=== PATIENT | female | born 1980 | race American Indian/Alaskan Native ===

== ENCOUNTER 2016-11-08 13:26 | Emergency (ER) | payer MEDICAID ==
[2016-11-08] MEDS ORDERED: MOTRIN PO ONE (16:59)
--- NOTE | 2016-11-08 17:01 | Emergency Department Report ---
ED Extremity Problem HPI - General Chief complaint: Animal Bite Stated complaint: INSECT BITE/RT ELBOW PAIN/ Time Seen by Provider: 11/08/16 16:39 Source: patient Mode of arrival: Ambulatory Limitations: No Limitations - History of Present Illness Initial comments: Patient states she noticed a small, red, itchy bump on her right elbow yesterday and thought it was a mosquito bite, but today as time progressed, her elbow has become increasingly swollen and painful and warm to the touch; denies any recent injuries or trauma and fevers MD Complaint: joint swelling, joint paint -: days(s) (1) Location: right, elbow History of Same: No -: No myalgia, Yes arthralgia, No fever, No associated dyspnea, No associated chest pain Radiation: distal Severity scale (0 -10): 8 Quality: stabbing, sharp Consistency: constant Improves with: immobilization Worsens with: palpation, other (movement) Associated Symptoms: arthralgias. denies: chest pain, shortness of breath, fever, myalgias, rash - Related Data Previous Rx's Medication Instructions Recorded Last Taken Type Clindamycin [Clindamycin CAP] 300 mg PO Q8H #30 cap 11/08/16 Unknown Rx Ibuprofen [Motrin] 600 mg PO Q8H PRN #20 tablet 11/08/16 Unknown Rx traMADol [Ultram 50 MG tab] 50 mg PO Q4HR PRN #14 tablet 11/08/16 Unknown Rx Allergies Allergy/AdvReac Type Severity Reaction Status Date / Time No Known Allergies Allergy Unverified 11/08/16 14:27 ED Review of Systems ROS: Stated complaint: INSECT BITE/RT ELBOW PAIN/ Other details as noted in HPI Constitutional: denies: chills, fever, weakness Respiratory: denies: cough, shortness of breath Cardiovascular: denies: chest pain Gastrointestinal: denies: nausea, vomiting Musculoskeletal: joint swelling, arthralgia Skin: denies: rash Neurological: denies: headache ED Past Medical Hx - Past Medical History Hx Hypertension: Yes Hx Seizures: Yes Hx Psychiatric Treatment: Yes (DEPRESSION) - Surgical History Additional Surgical History: X 3. TUBAL LIGATION - Social History Smoking Status: Current Every Day Smoker Substance Use Type: Alcohol - Medications Home Medications: Home Medications Medication Instructions Recorded Confirmed Last Taken Type Clindamycin [Clindamycin CAP] 300 mg PO Q8H #30 cap 11/08/16 Unknown Rx Ibuprofen [Motrin] 600 mg PO Q8H PRN #20 tablet 11/08/16 Unknown Rx traMADol [Ultram 50 MG tab] 50 mg PO Q4HR PRN #14 tablet 11/08/16 Unknown Rx ED Physical Exam - General Limitations: No Limitations General appearance: alert, in no apparent distress - Head Head exam: Present: atraumatic, normocephalic, normal inspection - Eye Eye exam: Present: normal appearance, PERRL, EOMI Pupils: Present: normal accommodation - Neck Neck exam: Present: normal inspection, full ROM. Absent: tenderness - Respiratory Respiratory exam: Present: normal lung sounds bilaterally. Absent: respiratory distress, wheezes, rales, rhonchi, stridor - Cardiovascular Cardiovascular Exam: Present: regular rate, normal rhythm, normal heart sounds - Extremities Exam Extremities exam: Present: joint swelling (right elbow - edematous and erythematous, extremely TTP; decreased ROM with inability to fully extend elbow but has full flexion; warm to touch, no bleeding or drainage) - Back Exam Back exam: Present: full ROM - Neurological Exam Neurological exam: Present: alert, oriented X3, normal gait - Psychiatric Psychiatric exam: Present: normal affect, normal mood ED Course Vital Signs 11/08/16 14:28 Temperature 98.1 F Pulse Rate 97 H Respiratory 17 Rate Blood Pressure 154/95 O2 Sat by Pulse 100 Oximetry - Reevaluation(s) Reevaluation #1: 11/08/16 17:13 Medicated with motrin ED Medical Decision Making - Lab Data Result diagrams: 11/08/16 17:35 11/08/16 17:35 - Medical Decision Making Discussed results with Dr. Felder, who also evaluated patient, and together discussed results with patient; told her to use warm compresses, NSAIDs and will send home with RX for clindamycin and told her to follow up in 48 hours with PCP, she verbalized understanding Critical care attestation.: If time is entered above; I have spent that time in minutes in the direct care of this critically ill patient, excluding procedure time. ED Disposition Clinical Impression: Olecranon bursitis, right elbow Disposition: DISCHARGED TO HOME OR SELFCARE Is pt being admited?: No Does the pt Need Aspirin: No Condition: Stable Instructions: Elbow Bursitis (ED) Prescriptions: Clindamycin [Clindamycin CAP] 300 mg PO Q8H #30 cap Ibuprofen [Motrin] 600 mg PO Q8H PRN #20 tablet PRN Reason: Pain traMADol [Ultram 50 MG tab] 50 mg PO Q4HR PRN #14 tablet PRN Reason: Pain Referrals: LAURA CHRISTINE MD [Primary Care Provider] - 11/10/16 Time of Disposition: 19:03 Print Language: [place]
[2016-11-08 18:07] LABS: Anion Gap 18 mmol/L; BUN/Creatinine Ratio 28.33; Blood Urea Nitrogen 17 mg/dL (7-17); Calcium 8.9 mg/dL (8.4-10.2); Carbon Dioxide 24 mmol/L (22-30); Chloride 106.6 mmol/L (98-107); Glucose 102 mg/dL (65-100); Potassium 4.2 mmol/L (3.6-5.0); Sodium 144 mmol/L (137-145)
[2016-11-08 18:09] LABS: Basophils % (Auto) 0.3 % (0.0-1.8); Eosinophils % (Auto) 3.4 % (0.0-4.3); Hematocrit 36.7 % (30.3-42.9); Hemoglobin 12.1 gm/dl (10.1-14.3); Mean Corpuscular HGB Conc 33 % (30-34); Mean Corpuscular Hemoglobin 32 pg (28-32); Mean Corpuscular Volume 96 fl (79-97); Platelet Count 198 K/mm3 (140-440); Red Blood Count 3.83 M/mm3 (3.65-5.03); Red Cell Distribution Width 14.2 % (13.2-15.2); White Blood Count 4.6 K/mm3 (4.5-11.0)
--- NOTE | 2016-11-08 18:25 | XRay Report ---
FINAL REPORT EXAM: XR ELBOW 3 RT HISTORY: right elbow swelling and pain, no injury TECHNIQUE: Right elbow two views 4 images PRIORS: None. FINDINGS: Bone mineralization appears within normal limits. No acute fracture or subluxation is identified. No joint effusion is seen. There is is suggestion of mild soft tissue swelling posterior to the proximal ulna. IMPRESSION: 1. No acute osseous abnormality is identified. 2. There is suggestion of soft tissue swelling posterior to the proximal ulna.
[2016-11-08 19:24] VITALS: BP 138/86
== END 2016-11-08 19:23 | disposition home or self-care (01) ==
LOC: ED 13:26
DX: M70.21 Olecranon bursitis, right elbow (principal); I10 Essential (primary) hypertension; R56.9 Unspecified convulsions; F32.9 Major depressive disorder, single episode, unspecified; F17.200 Nicotine dependence, unspecified, uncomplicated; Z98.51 Tubal ligation status
CPT/HCPCS: 36415; 80048; 85025; 87040; 99284